=== PATIENT | female | born 1970 | race American Indian/Alaskan Native ===

== ENCOUNTER 2019-06-11 11:38 | Emergency (ER) | payer BC ==
[2019-06-11 12:11] VITALS: BP 159/65
--- NOTE | 2019-06-11 12:20 | Event Note ---
ED Screening Note Date of service: 06/11/19 Time: 12:19 ED Screening Note: 48 y/o female comes in for chest pain, headache and left arm feeling different. This initial assessment/diagnostic orders/clinical plan/treatment(s) is/are subject to change based on patients health status, clinical progression and re- assessment by fellow clinical providers in the ED. Further treatment and workup at subsequent clinical providers discretion. Patient/guardian urged not to elope from the ED as their condition may be serious if not clinically assessed and managed. Initial orders include: Chest pain protocol
--- NOTE | 2019-06-11 12:51 | XRay Report ---
CHEST 2 VIEWS INDICATION: sob,cough and rales. COMPARISON: FINDINGS: Support devices: None. Heart: Within normal limits. Lungs/pleura: No acute air space or interstitial disease. No pneumothorax. Additional findings: None. IMPRESSION: Normal chest x-ray Signer Name: Benjie Ma Jr, MD Signed: 06/11/2019 12:47 PM Workstation Name: [id number]
--- NOTE | 2019-06-11 12:58 | Emergency Department Report ---
HPI - General Chief Complaint: Chest Pain Time Seen by Provider: 06/11/19 12:15 - HPI HPI: Room 44 The patient is a 48-year-old female presenting with chief complaint of cough and body aches. Patient states symptoms began last night with a dry cough. Patient states she has had rhinorrhea and chest pain with her cough. Patient admits chest congestion and body aches. Patient missed a slight headache but denies fever. Location: [See above] Duration: [See above] Quality: [See above] Severity: [See above] Timing: [See above] Context: [See above] Modifying factors: [See above] Associated signs and symptoms: [see above] ED Past Medical Hx - Past Medical History Hx Hypertension: Yes Hx Diabetes: Yes - Surgical History Past Surgical History?: No - Family History Family history: no significant - Social History Smoking Status: Never Smoker Substance Use Type: None (denies illicit drug use), Alcohol (occasional) - Medications Home Medications: Home Medications Medication Instructions Recorded Confirmed Last Taken Type Albuterol INH(or & Nicu Only) 2 puff IH QID PRN #8.5 gram 06/11/19 Unknown Rx [ProAir HFA Inhaler] Azithromycin [Zithromax Z-SANDER] 0 mg PO DAILY #6 tab 06/11/19 Unknown Rx Benzonatate [Tessalon Perles] 100 mg PO Q8HR #30 capsule 06/11/19 Unknown Rx HYDROcodone/APAP 5-325 [[place] 1 - 2 each PO Q6HR PRN #10 tablet 06/11/19 Un known Rx 5/325] Ibuprofen [Motrin 800 MG tab] 800 mg PO Q8HR PRN #20 tablet 06/11/19 Unknown Rx ED Review of Systems ROS: Stated complaint: CHEST PAIN/DRY COUGH/BODY PAIN Other details as noted in HPI Constitutional: denies: fever Eyes: denies: eye pain Respiratory: cough Musculoskeletal: myalgia Physical Exam - Physical Exam Vital Signs: Vital Signs 06/11/19 12:08 Temperature 98.6 F Pulse Rate 84 Respiratory 20 Rate Blood Pressure 159/65 O2 Sat by Pulse 97 Oximetry Physical Exam: GENERAL: The patient is well-developed well-nourished female sitting on stretcher not appearing to be in acute distress. [] HEENT: Normocephalic. Atraumatic. Extraocular motions are intact. Patient has moist mucous membranes. NECK: Supple. Trachea midline CHEST/LUNGS: Clear to auscultation. There is no respiratory distress noted. HEART/CARDIOVASCULAR: Regular. There is no tachycardia. There is no gallop rub or murmur. ABDOMEN: Abdomen is soft, nontender. Patient has normal bowel sounds. There is no abdominal distention. SKIN: There is no rash. There is no edema. There is no diaphoresis. NEURO: The patient is awake, alert, and oriented. The patient is cooperative. The patient has normal speech MUSCULOSKELETAL: There is no evidence of acute injury. ED Course Vital Signs 06/11/19 12:08 Temperature 98.6 F Pulse Rate 84 Respiratory 20 Rate Blood Pressure 159/65 O2 Sat by Pulse 97 Oximetry ED Medical Decision Making - Lab Data Result diagrams: 06/11/19 13:46 06/11/19 13:46 Laboratory Tests 06/11/19 06/11/19 06/11/19 13:46 13:46 Unknown WBC 8.7 RBC 4.23 Hgb 11.8 Hct 36.1 MCV 85 MCH 28 MCHC 33 RDW 15.9 H Plt Count 248 Lymph % (Auto) 25.4 [place] % (Auto) 7.9 H Eos % (Auto) 3.5 Baso % (Auto) 0.4 Lymph # 2.2 [place] # 0.7 Eos # 0.3 Baso # 0.0 Seg Neutrophils % 62.8 Seg Neutrophils # 5.5 Sodium 140 Potassium 3.7 Chloride 100.4 Carbon Dioxide 25 Anion Gap 18 BUN 11 Creatinine 0.6 L Estimated GFR > 60 BUN/Creatinine Ratio 18 Glucose 97 Calcium 9.0 Total Bilirubin 0.20 AST 18 ALT 16 Alkaline Phosphatase 113 Troponin T < 0.010 Total Protein 7.6 Albumin 3.6 L Albumin/Globulin Ratio 0.9 Influenza A (Rapid) Negative Influenza B (Rapid) Negative - EKG Data -: EKG Interpreted by Me EKG shows normal: sinus rhythm Rate: normal - EKG Data When compared to previous EKG there are: previous EKG unavailable Interpretation: other (no ischemic changes seen) - Radiology Data Radiology results: report reviewed (chest x-ray), image reviewed (chest x-ray) interpreted by me: Chest x-ray-no focal infiltrates, no pneumothorax [facility] [address] [place] [address] XRay Report Signed Patient: GRAYSON HEAD MR#: [id number] : 1970 Acct:[id number] Age/Sex: 48 / F ADM Date: 06/11/19 Loc: ED Attending Dr: Ordering Physician: BETHEL ALMAGUER Date of Service: 06/11/19 Procedure(s): XR chest routine 2V Accession Number(s): [id number] cc: BETHEL ALMAGUER Fluoro Time In Minutes: CHEST 2 VIEWS INDICATION: sob,cough and rales. COMPARISON: FINDINGS: Support devices: None. Heart: Within normal limits. Lungs/pleura: No acute air space or interstitial disease. No pneumothorax. Additional findings: None. IMPRESSION: Normal chest x-ray Signer Name: Benjie Ma Jr, MD Signed: 06/11/2019 12:47 PM Workstation Name: [id number] Transcribed By: TTR Dictated By: BENJIE MA JR, MD Electronically Authenticated By: BENJIE MA JR, MD Signed Date/Time: 06/11/191246 DD/ 46 TD/TT: - Differential Diagnosis influenza, pneumonia, bronchitis, costochondritis, ACS Critical care attestation.: If time is entered above; I have spent that time in minutes in the direct care of this critically ill patient, excluding procedure time. ED Disposition Clinical Impression: Acute bronchitis Disposition: DC-01 TO HOME OR SELFCARE Is pt being admited?: No Does the pt Need Aspirin: No Condition: Stable Instructions: Acute Bronchitis (ED) Additional Instructions: Return to the emergency department should you develop worsening symptoms, inability to tolerate food or liquids, high fever or any other concerns Prescriptions: Ibuprofen [Motrin 800 MG tab] 800 mg PO Q8HR PRN #20 tablet PRN Reason: Pain, Moderate (4-6) HYDROcodone/APAP 5-325 [[place] 5/325] 1 - 2 each PO Q6HR PRN #10 tablet PRN Reason: Pain Albuterol INH(or & Nicu Only) [ProAir HFA Inhaler] 2 puff IH QID PRN #8.5 gram PRN Reason: Shortness Of Breath Benzonatate [Tessalon Perles] 100 mg PO Q8HR #30 capsule Azithromycin [Zithromax Z-SANDER] 0 mg PO DAILY #6 tab Referrals: PRIMARY CARE, [Primary Care Provider] - 3-5 Days SPENSER ZARAGOZA MD [Staff Physician] - 3-5 Days Time of Disposition: 15:46
[2019-06-11 14:25] LABS: Basophils % (Auto) 0.4 % (0.0-1.8); Eosinophils # (Auto) 0.3 K/mm3 (0.0-0.4); Eosinophils % (Auto) 3.5 % (0.0-4.3); Hematocrit 36.1 % (30.3-42.9); Hemoglobin 11.8 gm/dl (10.1-14.3); Lymphocytes # (Auto) 2.2 K/mm3 (1.2-5.4); Lymphocytes % (Auto) 25.4 % (13.4-35.0); Mean Corpuscular HGB Conc 33 % (30-34); Mean Corpuscular Volume 85 fl (79-97); Monocytes # (Auto) 0.7 K/mm3 (0.0-0.8); Monocytes % (Auto) 7.9 % (0.0-7.3); Platelet Count 248 K/mm3 (140-440); Red Blood Count 4.23 M/mm3 (3.65-5.03); Red Cell Distribution Width 15.9 % (13.2-15.2)
[2019-06-11 14:52] LABS: Alanine Aminotransferase 16 units/L (7-56); Albumin 3.6 g/dL (3.9-5); BUN/Creatinine Ratio 18; Blood Urea Nitrogen 11 mg/dL (7-17); Hemolysis Index 51
== END 2019-06-11 16:03 | disposition home or self-care (01) ==
LOC: ED 11:38
DX: J20.9 Acute bronchitis, unspecified (principal); I10 Essential (primary) hypertension; E11.9 Type 2 diabetes mellitus without complications; Z79.899 Other long term (current) drug therapy; Z91.09 Other allergy status, other than to drugs and biological substances
CPT/HCPCS: 36415; 71046; 80053; 84484; 85025; 87400; 93005; 93010

== ENCOUNTER → 2021-06-19 | Emergency (ER) | payer SELFPAY ==
[2021-06-19 10:05] VITALS: BP 159/76
== END ==
LOC: ED 10:00
DX: K08.89 Other specified disorders of teeth and supporting structures (principal); Z53.21 Procedure and treatment not carried out due to patient leaving prior to being seen by health care provider